=== PATIENT | male | born 1995 | race Caucasian/White ===

== ENCOUNTER 2021-12-02 20:32 | Emergency (ER) | payer MEDICAID, SELFPAY ==
[2021-12-02 20:35] VITALS: BP 162/107; PULSE 95; RESP 18; TEMP 36.3; O2SAT 99
--- NOTE | 2021-12-02 20:54 | ED.WOUNDLAC ---
HPI - Wound/Laceration General Chief Complaint: Wound/Laceration Stated Complaint: laceration to left index finger Time Seen by Provider: 12/02/21 20:39 History of Present Illness HPI narrative: Patient is a 26-year-old male who presents ER with laceration to the tip of the left index finger. He was chopping vegetables at [address] when he cut himself. Has little bit of tingling. Normal range of motion. Tetanus up-to-date. Related Data Home Medications Medication Instructions Recorded Confirmed No Home Medications 12/02/21 12/02/21 Allergies Allergy/AdvReac Type Severity Reaction Status Date / Time No Known Allergies Allergy Verified 12/02/21 20:38 Review of Systems Musculoskeletal: Musculoskeletal: Denies arthralgias and Denies joint swelling Integumentary/Breasts: Skin/Breast: Denies erythema and Denies rash Comments: Finger laceration left index finger. Neurologic: Reports headache(s), Denies focal weakness and Denies numbness PMFSH Past Medical History Medical History (Updated 12/02/21 @ 21:30 by Víctor Rivera MD) Healthy adult male Surgical History Surgical History (Updated 12/02/21 @ 20:55 by Víctor Rivera MD) No history of previous surgery Exam Narrative: GENERAL: Well-appearing, well-nourished, and in no acute distress. HEAD: Normocephalic, atraumatic. HEART: Regular rate and rhythm. Normal peripheral pulses. EXTREMITIES: Normal range of motion. No edema. Left index finger is neurovascular intact. SKIN: Warm, dry, no rash. Laceration tip of left index finger was 1.5 cm in length. The edge of the laceration on the distal end of the finger is dusky white likely from being held tight with the wrapping. No bone visualized in a bloodless field. NEURO: No focal deficits. Alert and oriented x3. PSYCH: Normal mood and affect. Course Course Emergency Course: Wound repaired. Discharge home. Vital Signs Vital signs: Vital Signs Temperature 97.3 F L 12/02/21 20:35 Pulse Rate 95 12/02/21 20:35 Respiratory Rate 18 12/02/21 20:35 Blood Pressure 162/107 H 12/02/21 20:35 Pulse Oximetry 99 12/02/21 20:35 Oxygen Delivery Room Air 12/02/21 20:35 Temperature 97.3 F L 12/02/21 20:35 Pulse Rate 95 12/02/21 20:35 Respiratory Rate 18 12/02/21 20:35 Blood Pressure 162/107 H 12/02/21 20:35 Pulse Oximetry 99 12/02/21 20:35 Oxygen Delivery Room Air 12/02/21 20:35 Procedures Laceration Laceration 1: Date: 12/02/21 Site: other (Left index finger) Size (cm): 1.5 Description: linear Depth: simple, single layer Local Anesthetic: lidocaine 1% Amount of anesthesia used (mL): 1.5 Pre-repair: wound explored and irrigated extensively ====== Skin Level ====== Skin layer closed with: nylon Size (cm): 5-0 Number of sutures: 3 Technique: simple, interrupted ====== Subcutaneous Layer ====== ====== Muscle Layer ====== ====== Tendon Layer ====== Discharge Plan Discharge Clinical Impression: Laceration Patient Disposition: Home, Self-Care Condition: Stable Instructions: Care For Your Stitches (ED), Laceration (ED) Additional Instructions: You will need to remove your sutures in 14 days. You may do this on your own at home or return to the ER or go to your primary care doctor to have them removed. Return to the ER for finger is red/hot/swollen, you have fever over 100.4 ?F, you have additional concerns. Prescriptions: No Action No Home Medications Follow-up/Referrals: UNKNOWN,DOCTOR [Primary Care Provider] - 2 Weeks
== END 2021-12-02 21:57 | disposition home or self-care (01) ==
PROVIDERS: Emergency Provider Emergency Medicine
DX: S61.211A Laceration without foreign body of left index finger without damage to nail, initial encounter (principal); W26.0XXA Contact with knife, initial encounter; Y93.G1 Activity, food preparation and clean up
CPT/HCPCS: 12001; 99282